=== PATIENT | female | born 1975 | race Two or more races ===

== ENCOUNTER 2016-06-29 11:31 | Emergency (ER) | payer OTHER ==
[2016-06-29 12:51] LABS: INFLUENZA A NEG (NEG); INFLUENZA B NEG (NEG)
[2016-06-29 13:07] LABS: URINE SOURCE CATH
[2016-06-29 13:17] LABS: URINE APPEARANCE CLEAR; URINE BILIRUBIN NEG (NEG); URINE BLOOD NEG (NEG); URINE COLOR YELLOW; URINE GLUCOSE NEG (NEG); URINE KETONE TRACE (NEG); URINE LEUKOCYTE ESTERASE NEG (NEG); URINE NITRATE NEG (NEG); URINE PROTEIN TRACE (NEG); URINE SPECIFIC GRAVITY 1.021 (1.003-1.035)
[2016-06-29 13:39] LABS: CULTURE INDICATED? NO
== END 2016-06-29 14:03 | disposition home or self-care (01) ==
LOC: CED 11:31 → CFTX 11:31
PROVIDERS: Nurse Practitioner
DX: J06.9 Acute upper respiratory infection, unspecified (principal); F17.210 Nicotine dependence, cigarettes, uncomplicated; Z87.442 Personal history of urinary calculi
CPT/HCPCS: 51701; 81003; 84703; 87651; 87804; 99283